=== PATIENT | female | born 1960 | race Two or more races ===

== ENCOUNTER → 2023-09-29 | Outpatient (CLI) | payer OTHER, MEDICAID ==
[~2023-09-29] VITALS: Ht 152.4 cm; Wt 117.9 kg
[~2023-09-29] MED LIST: REGADENOSON 0.4 MG/5 ML SYRG IV ONE
== END | disposition home or self-care (01) ==
LOC: XYW 08:29
PROVIDERS: ATTEND Specialist
DX: R06.02 Shortness of breath (principal); I50.9 Heart failure, unspecified
CPT/HCPCS: 78452; 93017; A9500; J2785